=== PATIENT | female | born 1970 | race Caucasian/White ===

== ENCOUNTER → 2017-11-10 | Outpatient (CLI) | payer BC ==
--- NOTE | 2017-11-10 11:35 | MR ---
EXAMINATION TYPE: MR shoulder LT wo con DATE OF EXAM: 11/10/2017 COMPARISON: NONE HISTORY: RTC injury to muscles/tendons, left shoulder per order. Pain for 2 to 3 months with difficul ty raising overhead per patient. TECHNIQUE: Multiplanar, multisequence imaging of the left shoulder is performed without contrast. FINDINGS: Rotator Cuff: Supraspinatus and infraspinatus tendons are both intact to humeral head attachment. No suspicious signal or partial tear is identified. Subscapularis tendon is intact. Rotator cuff muscle bulk is preserved. Acromioclavicular Joint: There is type II downsloping acromion. Acromioclavicular joint is maintained . Glenohumeral Joint: There is no significant spurring or joint effusion. Labrum: The labrum appears grossly intact given limitation of non-arthrogram study. Biceps Tendon: The long head of biceps is in normal location within bicipital groove. Bone marrow signal: No focal abnormal marrow signal is appreciated. Other: No additional significant abnormality is appreciated. IMPRESSION: No distinct rotator cuff or labral tear is seen. Type II acromion noted otherwise fairly unremarkable study.
== END | disposition home or self-care (01) ==
LOC: RADMRIMAIN 09:47
PROVIDERS: ATTEND Family Medicine
DX: S46.002A Unspecified injury of muscle(s) and tendon(s) of the rotator cuff of left shoulder, initial encounter (principal)

== ENCOUNTER 2023-01-31 11:24 | Day surgery (SDC) | payer BC, OTHER ==
[2023-01-29 11:27] VITALS: BMI 27.8
[2023-01-31] MEDS ORDERED: LIDOCAINE 1% (10MG/ML) FOR IV START INTRADERMA PRN (13:05)
[2023-01-31] MEDS ORDERED: LACTATED RINGERS 1,000 ML IV SCH (13:05)
[2023-01-31] MEDS ORDERED: LIDOCAINE 2% INJ 20 MG/ML (2 ML VIAL) ONE (13:46)
[2023-01-31] MEDS ORDERED: PROPOFOL 10 MG/ML 20 ML VIAL IV ONE (13:46)
--- NOTE | 2023-01-31 14:03 | P.PCN ---
Date of Procedure: 01/31/23 Procedure(s) Performed: BRIEF HISTORY: Patient is a 52-year-old, pleasant, white female scheduled for an upper endoscopy as a part of evaluation of long-standing history of GERD of several years duration. Currently on Prevacid 30 mg daily in the morning and Pepcid 20 mg at bedtime and still has breakthrough symptoms at night.. PROCEDURE PERFORMED: Esophagogastroduodenoscopy with biopsy. PREOPERATIVE DIAGNOSIS: Long-standing history of GERD. IV sedation per anesthesia. PROCEDURE: After informed consent was obtained, the patient was brought into the endoscopy unit. IV sedation was administered by Anesthesia under continuous monitoring. Initially the Olympus GIF-140 video endoscope was inserted into the mouth. Esophagus intubated without any difficulty. It was gradually advanced into the stomach and duodenum and carefully examined. The bulb and the second part of the duodenum appeared normal. The scope at this time was withdrawn to the stomach, adequately insufflated with air, and upon careful examination, mucosa of the antrum, had linear areas of erythema consistent with gastritis and biopsies were done from this area. Mucosa of the body, cardia and the fundus appeared normal. The scope was then withdrawn into the esophagus. Small hiatal hernia noted. The GE junction was located at 39 cm from the incisors. The esophagus appeared normal. There were no erosions or ulcerations seen and the patient tolerated the procedure well. IMPRESSION: 1. Small hiatal hernia but no evidence of esophagitis or Gerard's esophagus. 2. And mild antral gastritis. RECOMMENDATIONS: The findings of this examination were discussed with the patient as well as his family. She was advised to follow with the biopsy results. In the meantime I suggested that she change the Prevacid to 30 mg half hour before dinner time and take Pepcid 20 mg at bedtime and follow antireflux measures. If she still remains symptomatic with this as a suppressive therapy she was advised to follow up in office in 4-6 weeks..
[2023-01-31 15:31] VITALS: BP 130/87; PULSE 83; RESP 16; TEMP 97.4
== END 2023-01-31 14:39 | disposition home or self-care (01) ==
LOC: ORWHC2ENDO 11:24
PROVIDERS: ATTEND Internal Medicine Gastroenterology
DX: K29.50 Unspecified chronic gastritis without bleeding (principal); K21.9 Gastro-esophageal reflux disease without esophagitis; K44.9 Diaphragmatic hernia without obstruction or gangrene; F41.9 Anxiety disorder, unspecified; Z87.891 Personal history of nicotine dependence; Z79.899 Other long term (current) drug therapy
CPT/HCPCS: 88305; 43239; J2704; J2001